=== PATIENT | female | born 1975 | race Caucasian/White ===

== ENCOUNTER 2016-05-23 13:43 | Emergency (ER) | payer OTHER ==
[~2016-05-23] VITALS: Ht 170.2 cm; Wt 99.8 kg
[2016-05-23 13:51] VITALS: BP 127/83
[2016-05-23] MEDS ORDERED: LIDO700A4 TP (14:04)
[2016-05-23] MEDS ORDERED: IBUP600T16 PO (14:04)
[2016-05-23] MEDS ORDERED: CYCL5TAB PO (14:04)
--- NOTE | 2016-05-23 14:14 | ED.ADGEN ---
Past History Past Medical History: No Pertinent History Past Surgical History: Other Alcohol Use: None Drug Use: None Adult General Chief Complaint Chief Complaint back pain HPI HPI Patient is a 40 year old female who presents with right middle back pain. She does not recall an incident for when she injured her back, was gradual in onset , does worsen with movement and twisting. She works as a heart hose coil or, lifting and tugging. She is unsure if she hurt this during her work. She is attempted ibuprofen and Tylenol without relief. No saddle sensory change, no bowel or bladder incontinence Review of Systems Review of Systems Constitutional: Denies fever or chills [] Eyes: Denies change in visual acuity, redness, or eye pain [] HENT: Denies nasal congestion or sore throat [] Respiratory: Denies cough or shortness of breath [] Cardiovascular: No additional information not addressed in HPI [] GI: Denies abdominal pain, nausea, vomiting, bloody stools or diarrhea [] : Denies dysuria or hematuria [] Musculoskeletal: Denies back pain or joint pain [] Integument: Denies rash or skin lesions [] Neurologic: Denies headache, focal weakness or sensory changes [] Endocrine: Denies polyuria or polydipsia [] Allergies Allergies Allergies Coded Allergies Type Severity Reaction Last Updated Verified No Known Drug Allergies 05/23/16 No Physical Exam Physical Exam Constitutional: Well developed, well nourished, no acute distress, non-toxic appearance. [] HENT: Normocephalic, atraumatic, bilateral external ears normal, oropharynx moist, no oral exudates, nose normal. [] Eyes: PERRLA, EOMI, conjunctiva normal, no discharge. [] Neck: Normal range of motion, no tenderness, supple, no stridor. [] Cardiovascular:Heart rate regular with regular rhythm, no murmur [] Lungs & Thorax: Bilateral breath sounds clear to auscultation , no wheeze or crackles Abdomen: soft, no tenderness,nondistended Skin: Warm, dry, no erythema, no rash. [] Back: No midline tenderness, ttp along R lateral back without deformity or erythema, no fluctance or increased warmth. Extremities: No tenderness, no cyanosis, no clubbing, ROM intact, no edema. [] Neurologic: Alert and oriented X 3, normal motor function, normal sensory function, no focal deficits noted. [] Psychologic: Affect normal, judgement normal, mood normal. [] Current Patient Data Vital Signs Vital Signs Date Time Temp Pulse Resp B/P Pulse Ox O2 Delivery O2 Flow Rate FiO2 05/23/16 13:51 98.1 74 18 99 Room Air EKG EKG [] Radiology/Procedures Radiology/Procedures [] Course & Med Decision Making Course & Med Decision Making Pertinent Labs and Imaging studies reviewed. (See chart for details) appears to be muscle strain, likely related to her job. Continue ibuprofen, flexeril and lidoderm patches ordered. Return precautions given. Pt given referral sheet for pcp Final Impression Final Impression acute musculoskeletal back pain[] Problems: Dragon Disclaimer Dragon Disclaimer This electronic medical record was generated, in whole or in part, using a voice recognition dictation system. FRANCES ALSTON MD May 23, 2016 14:14
== END 2016-05-23 14:07 | disposition home or self-care (01) ==
LOC: ER 13:43
DX: M54.89 Other dorsalgia (principal)
CPT/HCPCS: 99283

== ENCOUNTER 2018-01-11 07:02 | Emergency (ER) | payer SELFPAY ==
[~2018-01-11 07:02] MED LIST: CYCL5TAB PO; IBUP600T16 PO; LIDO700A4 TP
[2018-01-11] MEDS ORDERED: HYDROcodone/APAP 5/325MG 1 TAB TABLET ONE (07:21)
--- NOTE | 2018-01-11 07:22 | PHYS DOC ---
Past History Past Medical History: No Pertinent History Past Surgical History: No Surgical History Additional Smoking Information: 1 pack a day Alcohol Use: None Drug Use: None Adult General Chief Complaint Chief Complaint: cough and fever HPI HPI Patient is a 42 year old female who presents with complaining of cough and congestion and fever. Patient states she has had cough and nasal congestion and shortness of breath for 4 week and since yesterday developed fever as high as 103 with generalized weakness and myalgia. Patient complaining of nausea sore throat without vomiting, diarrhea, urinary symptoms, sick contact. Review of Systems Review of Systems Constitutional: Reports fever and chills Eyes: Denies change in visual acuity, redness, or eye pain [] HENT: Reports nasal congestion and sore throat Respiratory: Reports cough and shortness of breath Cardiovascular: No additional information not addressed in HPI [] GI: Denies abdominal pain, vomiting, bloody stools or diarrhea [] : Denies dysuria or hematuria [] Musculoskeletal: Denies back pain or joint pain [] Integument: Denies rash or skin lesions [] Neurologic: Denies headache, focal weakness or sensory changes [] Endocrine: Denies polyuria or polydipsia [] All other systems were reviewed and found to be within normal limits, except as documented in this note. Current Medications Current Medications Current Medications Medications (Trade) Dose Ordered Sig/[facility] Start Time Stop Time Status Last Admin Dose Admin Acetaminophen/ Hydrocodone Bitart (Lortab 5/325) 1 tab 1X ONCE 01/11/18 07:45 01/11/18 07:46 Ibuprofen (Motrin) 800 mg 1X ONCE 01/11/18 07:45 01/11/18 07:46 Allergies Allergies Allergies Coded Allergies Type Severity Reaction Last Updated Verified No Known Drug Allergies 05/23/16 No Physical Exam Physical Exam Constitutional: Well developed, well nourished, moderate distress, non-toxic appearance. [] HENT: Normocephalic, atraumatic, bilateral external ears normal, oropharynx moist, pharyngeal erythema without enlarged tonsils, no oral exudates, nose normal. [] Eyes: PERRLA, EOMI, conjunctiva normal, no discharge. [] Neck: Normal range of motion, no tenderness, supple, no stridor. [] Cardiovascular:Heart rate regular rhythm, no murmur [] Lungs & Thorax: Bilateral breath sounds clear to auscultation [] Abdomen: Bowel sounds normal, soft, no tenderness, no masses, no pulsatile masses. [] Skin: Warm, dry, no erythema, no rash. [] Back: No tenderness, no CVA tenderness. [] Extremities: No tenderness, no cyanosis, no clubbing, ROM intact, no edema. [] Neurologic: Alert and oriented X 3, normal motor function, normal sensory function, no focal deficits noted. [] Psychologic: Affect normal, judgement normal, mood normal. [] Current Patient Data Vital Signs Vital Signs Date Time Temp Pulse Resp B/P (MAP) Pulse Ox O2 Delivery O2 Flow Rate FiO2 01/11/18 07:07 101.7 109 18 97 Room Air EKG EKG [] Radiology/Procedures Radiology/Procedures [] Course & Med Decision Making Course & Med Decision Making Pertinent Labs reviewed. (See chart for details) Evaluation of patient in ER showed 42-year-old female patient with history of smoking and upper respiratory infection symptoms for 4 weeks and fever since last night. Patient had negative flu test and felt better after treatment in ER with ibuprofen and [place]. Plan discharge patient home to diagnose of acute bronchitis and prescription of antibiotic and cough medication. Patient instructed to quit smoking. Dragon Disclaimer Dragon Disclaimer This electronic medical record was generated, in whole or in part, using a voice recognition dictation system. Departure Departure: Impression: Primary Impression: Acute bronchitis Additional Impressions: Fever Tobacco abuse Tobacco abuse counseling Disposition: HOME, SELF-CARE (at 0832) Condition: IMPROVED Referrals: NAMEVIRIDIANA (PCP) Patient Instructions: Acute Bronchitis, Fever, Adult, Smoking Cessation, Tips For Success Additional Instructions: Drink plenty of liquids Follow-up with your primary care physician in 3-5 days Return to ER if not getting better Scripts Ibuprofen (IBUPROFEN) 800 Mg Tablet 1 TAB PO TID for pain, #30 TAB Prov: DAMEON LARIOS MD 01/11/18 Amoxicillin (AMOXICILLIN) 500 Mg Capsule 1 CAP PO Q8HRS for infection, #30 CAP Prov: DAMEON LARIOS MD 01/11/18 Benzonatate (TESSALON PERLE) 100 Mg Capsule 1 CAP PO TID for cough, #21 CAP Prov: DAMEON LARIOS MD 01/11/18 Problem Qualifiers DAMEON LARIOS MD Jan 11, 2018 07:22
[2018-01-11] MEDS ORDERED: HYDROcodone/APAP 5/325MG 1 TAB TABLET PO ONE (07:45)
[2018-01-11] MEDS ORDERED: IBUPROFEN 400 MG TABLET. PO ONE (07:45)
[2018-01-11 08:07] LABS: INFLUENZA A PATIENT NEGATIVE (NEGATIVE); INFLUENZA B PATIENT NEGATIVE (NEGATIVE)
[2018-01-11] MEDS ORDERED: AMOX500C PO (08:36)
[2018-01-11] MEDS ORDERED: BENZ100C PO (08:36)
[2018-01-11] MEDS ORDERED: IBUP800T19 PO (08:36)
[2018-01-11 08:42] VITALS: BP 121/77
== END 2018-01-11 08:46 | disposition home or self-care (01) ==
LOC: ER 07:02
DX: J20.9 Acute bronchitis, unspecified (principal); F17.200 Nicotine dependence, unspecified, uncomplicated; R53.1 Weakness; Z71.6 Tobacco abuse counseling
CPT/HCPCS: 81025; 87804; 99283

== ENCOUNTER 2018-05-15 13:28 | Emergency (ER) | payer MEDICAID ==
[~2018-05-15] VITALS: Ht 170.2 cm; Wt 99.8 kg
[~2018-05-15 13:28] MED LIST changes: +AMOX500C PO; +BENZ100C PO; +IBUP800T19 PO
--- NOTE | 2018-05-15 14:10 | PHYS DOC ---
Past History Past Medical History: No Pertinent History Past Surgical History: No Surgical History Alcohol Use: None Drug Use: None Adult General Chief Complaint Chief Complaint: OTHER COMPLAINTS HPI HPI 42-year-old female presents with vaginal bleeding. The patient is 9 weeks and this morning she started having bright red vaginal bleeding and lower abdominal cramping. She is still having some bleeding, but it has slowed. She continues to have cramping. She has had one previous miscarriage in 1995. She has not had an ultrasound yet. She has not seen OB. Review of Systems Review of Systems Constitutional: Denies fever or chills [] Eyes: Denies change in visual acuity, redness, or eye pain [] HENT: Denies nasal congestion or sore throat [] Respiratory: Denies cough or shortness of breath [] Cardiovascular: No additional information not addressed in HPI [] GI: Abdominal cramping. Denies nausea, vomiting, bloody stools or diarrhea [] : Vaginal bleeding[] Musculoskeletal: Denies back pain or joint pain [] Integument: Denies rash or skin lesions [] Neurologic: Denies headache, focal weakness or sensory changes [] Endocrine: Denies polyuria or polydipsia [] All other systems were reviewed and found to be within normal limits, except as documented in this note. Allergies Allergies Allergies Coded Allergies Type Severity Reaction Last Updated Verified No Known Drug Allergies 05/23/16 No Physical Exam Physical Exam Constitutional: Well developed, well nourished, no acute distress, non-toxic appearance. [] HENT: Normocephalic, atraumatic, bilateral external ears normal, oropharynx moist, no oral exudates, nose normal. [] Eyes: PERRLA, EOMI, conjunctiva normal, no discharge. [] Neck: Normal range of motion, no tenderness, supple, no stridor. [] Cardiovascular:Heart rate regular rhythm, no murmur [] Lungs & Thorax: Bilateral breath sounds clear to auscultation [] Abdomen: Bowel sounds normal, soft, no tenderness, no masses, no pulsatile masses. [] Skin: Warm, dry, no erythema, no rash. [] Back: No tenderness, no CVA tenderness. [] Extremities: No tenderness, no cyanosis, no clubbing, ROM intact, no edema. [] Neurologic: Alert and oriented X 3, normal motor function, normal sensory function, no focal deficits noted. [] Psychologic: Affect normal, judgement normal, mood sad. [] EKG EKG [] Radiology/Procedures Radiology/Procedures [] Impressions: Transabdominal and transvaginal sonography of the pelvis-OB ultrasound study first trimester exam Clinical indications: Bleeding and cramping. COMPARISON: None available. Abdominal sonography: The uterus is anteverted in position. No intrauterine gestational sac is seen. Therefore transvaginal sonography will be performed. No adnexal mass is seen. No free fluid is evident. Right ovarian cyst is evident. Left ovary is not visualized. Transvaginal sonography: The endometrial canal is thickened consistent with state. No intrauterine fetus or heartbeat is seen. There is a question of a very early gestational sac within the fundal portion of the endometrial canal with average measurement of 14 mm. There is an anterior fibroid measuring 3.3 cm in size. Within the right ovary, a cyst is seen measuring almost 6 cm in size. Color Doppler flow it is not visualized within the ovarian parenchyma around the right ovarian cyst. Right ovarian torsion cannot be excluded. The left ovary is not visualized. No free fluid is evident. IMPRESSION: No definite intrauterine is seen. A question of a early gestational sac measuring 14 mm in size. Therefore, this study is indeterminate. Recommend correlation with serial quantitative beta-hCG studies. An ectopic has not been excluded. A 6 cm right ovarian cyst. No color Doppler flow is seen within the ovarian parenchyma around the cyst. Right ovarian torsion cannot be excluded. Left ovary is not visualized. Electronically signed by: Sheri Larson MD (05/15/2018 4:37 PM) [facility] [place] DICTATED AND SIGNED BY: SHERI LARSON MD DATE: 05/15/18 [id number] CC: KARIN HAILE DO; NAME,VIRIDIANA ALONSO ~ Course & Med Decision Making Course & Med Decision Making Pertinent Labs and Imaging studies reviewed. (See chart for details) The patient's blood type is A+. Rogaine was not indicated. Her labs are unremarkable. Ultrasound is pending. HCG is 1430. The ultrasound does not show a definite intrauterine . I recommended serial hCGs as well as OB follow-up this week. The patient is stable for discharge at this time. [] Dragon Disclaimer Dragon Disclaimer This electronic medical record was generated, in whole or in part, using a voice recognition dictation system. Departure Departure: Impression: Primary Impression: Vaginal bleeding during Disposition: HOME, SELF-CARE Condition: STABLE Referrals: CLARKE,VIRIDIANA ALONSO (PCP) Patient Instructions: Vaginal Bleeding During , First Trimester KARIN HAILE DO May 15, 2018 14:10
[2018-05-15 14:11] LABS: BASO # 0.1 x10^3/uL (0.0-0.2); BASO % 1 % (0-3); EOS # 0.1 x10^3/uL (0.0-0.7); EOS % 1 % (0-3); HEMOGLOBIN 14.4 g/dL (12.0-15.5); LYMPH # 2.1 x10^3/uL (1.0-4.8); LYMPH % 19 % (24-48); MEAN CORPUSCULAR HEMOGLOBIN 33 pg (25-35); MEAN CORPUSCULAR HGB CONC 35 g/dL (31-37); MEAN CORPUSCULAR VOLUME 94 fL (79-100); MONO # 0.7 x10^3/uL (0.0-1.1); MONO % 7 % (0-9); NEUT # 7.8 x10^3uL (1.8-7.7); NEUT % 73 % (31-73); PLATELET COUNT 254 x10^3/uL (140-400); RED BLOOD COUNT 4.36 x10^6/uL (3.50-5.40); RED CELL DISTRIBUTION WIDTH 13.3 % (11.5-14.5); WHITE BLOOD COUNT 10.7 x10^3/uL (4.0-11.0)
[2018-05-15 14:17] LABS: ALBUMIN 3.4 g/dL (3.4-5.0); ALBUMIN/GLOBULIN RATIO 1.1 (1.0-1.7); CALCIUM 8.7 mg/dL (8.5-10.1); CREATININE 0.8 mg/dL (0.6-1.0); GFR 79.4; POTASSIUM 3.8 mmol/L (3.5-5.1); TOTAL BILIRUBIN 0.2 mg/dL (0.2-1.0); TOTAL PROTEIN 6.4 g/dL (6.4-8.2)
[2018-05-15 14:30] LABS: BILIRUBIN,URINE NEG (NEG); CLARITY,URINE HAZY; COLOR,URINE YELLOW; GLUCOSE,URINE NEG (NEG); NITRITE,URINE NEG (NEG); UROBILINOGEN,URINE 0.2 mg/dL (0.2 mg/dL)
[2018-05-15 14:31] LABS: BACTERIA,URINE 0 /HPF (0-FEW); SQUAMOUS EPITHELIAL CELL,UR FEW /LPF; WBC,URINE OCC /HPF (0-4)
--- NOTE | 2018-05-15 16:39 | RAD ---
Transabdominal and transvaginal sonography of the pelvis-OB ultrasound study first trimester exam Clinical indications: Bleeding and cramping. COMPARISON: None available. Abdominal sonography: The uterus is anteverted in position. No intrauterine gestational sac is seen. Therefore transvaginal sonography will be performed. No adnexal mass is seen. No free fluid is evident. Right ovarian cyst is evident. Left ovary is not visualized. Transvaginal sonography: The endometrial canal is thickened consistent with state. No intrauterine fetus or heartbeat is seen. There is a question of a very early gestational sac within the fundal portion of the endometrial canal with average measurement of 14 mm. There is an anterior fibroid measuring 3.3 cm in size. Within the right ovary, a cyst is seen measuring almost 6 cm in size. Color Doppler flow it is not visualized within the ovarian parenchyma around the right ovarian cyst. Right ovarian torsion cannot be excluded. The left ovary is not visualized. No free fluid is evident. IMPRESSION: No definite intrauterine is seen. A question of a early gestational sac measuring 14 mm in size. Therefore, this study is indeterminate. Recommend correlation with serial quantitative beta-hCG studies. An ectopic has not been excluded. A 6 cm right ovarian cyst. No color Doppler flow is seen within the ovarian parenchyma around the cyst. Right ovarian torsion cannot be excluded. Left ovary is not visualized. Electronically signed by: Mikel Larson MD (05/15/2018 4:37 PM) [facility] [place]
[2018-05-15 16:51] VITALS: BP 121/79
[2018-05-16] MEDS ORDERED: MELO7.5T29 PO (16:18)
[2018-05-16] MEDS ORDERED: HYDR-3165 PO (16:18)
== END 2018-05-15 17:00 | disposition home or self-care (01) ==
LOC: ER 13:28
DX: O46.91 Antepartum hemorrhage, unspecified, first trimester (principal); O34.81 Maternal care for other abnormalities of pelvic organs, first trimester; N83.201 Unspecified ovarian cyst, right side; Z3A.09 9 weeks gestation of pregnancy
CPT/HCPCS: 36415; 76801; 80053; 81001; 84702; 85025; 86900; 86901; 99284-25

== ENCOUNTER 2018-05-15 22:49 | Emergency (ER) | payer MEDICAID, OTHER ==
[~2018-05-15] VITALS: Ht 170.2 cm; Wt 100.0 kg
--- NOTE | 2018-05-15 23:18 | PHYS DOC ---
Past History Past Medical History: No Pertinent History Past Surgical History: No Surgical History Alcohol Use: None Drug Use: None Adult General Chief Complaint Chief Complaint: VAGINAL BLEEDING HPI HPI Patient is a 42-year-old female, who presents with report of increasing vaginal bleeding. Patient was seen here earlier today by Dr. Juan and diagnosed with vaginal bleeding during . Patient reports that she thought that she was around 9 weeks but ultrasound and quantitative hCG did not support this. Patient states that earlier in the day she was just spotting but then she started passing a lot more blood along with blood clots. She also complains of a lot of lower abdominal cramping. She denies any nausea or vomiting. Patient has an appointment to see her OB on Thursday. Review of Systems Review of Systems Constitutional: Denies fever or chills [] Respiratory: Denies cough or shortness of breath [] Cardiovascular: No additional information not addressed in HPI [] GI: Complains of lower abdominal cramping without vomiting or diarrhea [] : Positive vaginal bleeding[] All other systems were reviewed and found to be within normal limits, except as documented in this note. Current Medications Current Medications Current Medications Medications (Trade) Dose Ordered Sig/[facility] Start Time Stop Time Status Last Admin Dose Admin Nalbuphine HCl (Nubain) 10 mg 1X ONCE 05/15/18 23:15 05/15/18 23:16 UNV Allergies Allergies Allergies Coded Allergies Type Severity Reaction Last Updated Verified No Known Drug Allergies 05/23/16 No Physical Exam Physical Exam Constitutional: Well developed, well nourished, no acute distress, non-toxic appearance. [] Eyes: PERRLA, EOMI, conjunctiva normal, no discharge. [] Neck: Normal range of motion, no tenderness, supple, no stridor. [] Cardiovascular: Regular rate and rhythm[] Lungs & Thorax: Bilateral breath sounds clear to auscultation [] Abdomen: Bowel sounds normal, soft. [] Skin: Warm, dry, no erythema, no rash. [] Neurologic: Alert and oriented X 3, no focal deficits noted. [] EKG EKG [] Radiology/Procedures Radiology/Procedures [] Course & Med Decision Making Course & Med Decision Making Pertinent Labs and Imaging studies reviewed. (See chart for details) [] Dragon Disclaimer Dragon Disclaimer This electronic medical record was generated, in whole or in part, using a voice recognition dictation system. Departure Departure: Impression: Primary Impression: Vaginal bleeding during Disposition: 01 HOME, SELF-CARE Condition: STABLE Referrals: NAME,VIRIDIANA ALONSO (PCP) Patient Instructions: Vaginal Bleeding During , [id number] REBECCA RIOS Jr. DO May 15, 2018 23:18
[2018-05-15] MEDS ORDERED: NALBUPHINE 10 MG/ML AMPUL. IM ONE (23:30)
[2018-05-16 01:10] LABS: BASO # 0.1 x10^3/uL (0.0-0.2); BASO % 1 % (0-3); EOS # 0.2 x10^3/uL (0.0-0.7); EOS % 2 % (0-3); HEMATOCRIT 40.7 % (36.0-47.0); LYMPH # 2.8 x10^3/uL (1.0-4.8); LYMPH % 28 % (24-48); MEAN CORPUSCULAR HEMOGLOBIN 33 pg (25-35); MEAN CORPUSCULAR HGB CONC 35 g/dL (31-37); MEAN CORPUSCULAR VOLUME 94 fL (79-100); MONO # 0.7 x10^3/uL (0.0-1.1); MONO % 7 % (0-9); NEUT # 6.3 x10^3uL (1.8-7.7); NEUT % 62 % (31-73); PLATELET COUNT 250 x10^3/uL (140-400); RED BLOOD COUNT 4.32 x10^6/uL (3.50-5.40); RED CELL DISTRIBUTION WIDTH 13.2 % (11.5-14.5); WHITE BLOOD COUNT 10.1 x10^3/uL (4.0-11.0)
[2018-05-16 01:15] VITALS: BP 128/78
[2018-05-16] MEDS ORDERED: MELO7.5T29 PO (16:18)
[2018-05-16] MEDS ORDERED: HYDR-3165 PO (16:18)
== END 2018-05-16 01:48 | disposition home or self-care (01) ==
LOC: ER 22:49
DX: O46.91 Antepartum hemorrhage, unspecified, first trimester (principal); R10.30 Lower abdominal pain, unspecified; Z3A.09 9 weeks gestation of pregnancy
CPT/HCPCS: 36415; 85025; 96372; 99283; J2300

== ENCOUNTER 2018-05-16 14:04 | Emergency (ER) | payer OTHER ==
[~2018-05-16] VITALS: Ht 170.2 cm; Wt 100.0 kg
[2018-05-16 14:04] VITALS: BP 135/83
--- NOTE | 2018-05-16 14:45 | PHYS DOC ---
Past History Past Medical History: No Pertinent History Past Surgical History: No Surgical History Alcohol Use: None Drug Use: None Adult General Chief Complaint Chief Complaint: VAGINAL BLEEDING HPI HPI Patient is a 42-year-old female presents with worsening pelvic pain and vaginal bleeding. She was seen 2 times yesterday for this. Had a quantitative and an ultrasound performed. She believed that she was 9 weeks but these tests indicate an earlier versus a potential miscarriage. She has had no outpatient pain medicine. She did receive some Nubain while in the emergency department last night. She is 7, para 5. No previous pelvic surgeries. No back or flank pain. She is noting some dysuria at the onset of urination. She reports that the bleeding has improved since yesterday, however she is continuing to pass clots.[] Review of Systems Review of Systems Constitutional: Denies fever or chills [] Eyes: Denies change in visual acuity, redness, or eye pain [] HENT: Denies nasal congestion or sore throat [] Respiratory: Denies cough or shortness of breath [] Cardiovascular: No chest pain or palpitations[] GI: Denies abdominal pain, nausea, vomiting, bloody stools or diarrhea [] : See history of present illness[] Musculoskeletal: Denies back pain or joint pain [] Integument: Denies rash or skin lesions [] Neurologic: Denies headache, focal weakness or sensory changes [] Endocrine: Denies polyuria or polydipsia [] All other systems were reviewed and found to be within normal limits, except as documented in this note. Allergies Allergies Allergies Coded Allergies Type Severity Reaction Last Updated Verified No Known Drug Allergies 05/16/18 No Physical Exam Physical Exam Constitutional: Well developed, well nourished, tearful, non-toxic appearance. [ ] HENT: Normocephalic, atraumatic, bilateral external ears normal, oropharynx moist, no oral exudates, nose normal. [] Eyes: PERRLA, EOMI, conjunctiva normal, no discharge. [] Neck: Normal range of motion, no tenderness, supple, no stridor. [] Cardiovascular:Heart rate regular rhythm, no murmur [] Lungs & Thorax: Bilateral breath sounds clear to auscultation [] Abdomen: Bowel sounds normal, soft, no tenderness, no masses, no pulsatile masses. Pelvic exam performed with engineering assistant: External genitalia, Croswell's, Bartholin's glandsnormal, V/V-scant blood in the vault. cervix-no CMT, no gross hemorrhage [] Skin: Warm, dry, no erythema, no rash. No petechiae, no ulcers [] Back: No tenderness, no CVA tenderness. [] Extremities: No tenderness, no cyanosis, no clubbing, ROM intact, no edema. [] Neurologic: Alert and oriented X 3, normal motor function, normal sensory function, no focal deficits noted. [] Psychologic: Affect tearful, judgement normall. [] Current Patient Data Vital Signs Vital Signs Date Time Temp Pulse Resp B/P (MAP) Pulse Ox O2 Delivery O2 Flow Rate FiO2 05/16/18 14:04 97.7 80 16 97 Room Air EKG EKG [] Radiology/Procedures Radiology/Procedures Ultrasound shows no gestational sac, no evidence of an ectopic .[] Course & Med Decision Making Course & Med Decision Making Pertinent Labs and Imaging studies reviewed. (See chart for details) Medical decision making: Given the lack of a sac in the uterus given that there was one yesterday along with the decreasing quantitative test, believe the patient is completing a miscarriage. There is no evidence of an ectopic. Patient is a positive based on blood typing performed yesterday so no evidence of need for Rh immunoglobulin. ED course: Patient arrived, was placed in bed, and tolerated exam well. Patient was transported to and from [facility], [place] with any complications. Pelvic exam was performed with engineering assistant. After return of lab and imaging studies, these were discussed with patient and her who voiced understanding. All questions were answered. Patient was discharged in improved condition.[] Dragon Disclaimer Dragon Disclaimer This electronic medical record was generated, in whole or in part, using a voice recognition dictation system. Departure Departure: Impression: Primary Impression: Miscarriage Disposition: HOME, SELF-CARE Condition: IMPROVED Referrals: NAMEVIRIDIANA (PCP) Follow-up in 2 days Patient Instructions: Miscarriage Additional Instructions: Follow-up with your [facility] HE[facility] MANAGER as scheduled. Your quantitative test has decreased from 1430 down to 310 between yesterday and today. This level needs to be followed all the way to zero. Return to the ER if worsening pain, bleeding , or any other concerns. Scripts Hydrocodone Bit/Acetaminophen (NORCO 5-325 TABLET) 1 Each Tablet 1-2 TAB PO Q4-6HRS for severe pain, #20 TAB Prov: DOMENICO COVINGTON DO 05/16/18 Meloxicam (MELOXICAM) 7.5 Mg Tablet 7.5 MG PO DAILY for PAIN, #20 TAB Prov: DOMENICO COVINGTON DO 05/16/18 DOMENICO COVINGTON DO May 16, 2018 14:45
[2018-05-16] MEDS ORDERED: ACETAMINOPHEN/CODEINE 300/30MG TABLET PO ONE (15:10)
[2018-05-16 16:03] LABS: BILIRUBIN,URINE NEG (NEG); CLARITY,URINE CLEAR; COLOR,URINE YELLOW; GLUCOSE,URINE NEG (NEG)
[2018-05-16 16:04] LABS: BACTERIA,URINE 0 /HPF (0-FEW); NITRITE,URINE NEG (NEG); SQUAMOUS EPITHELIAL CELL,UR OCC /LPF; UROBILINOGEN,URINE 0.2 mg/dL (0.2 mg/dL)
[2018-05-16] MEDS ORDERED: MELO7.5T29 PO (16:18)
[2018-05-16] MEDS ORDERED: HYDR-3165 PO (16:18)
--- NOTE | 2018-05-16 16:19 | RAD ---
Examination: Obstetric ultrasound less than 14 weeks HISTORY: History of increasing pain, bleeding COMPARISON: 05/15/2018 FINDINGS: The uterus measures 12.5 x 6.4 x 7.2 cm. There is heterogeneous echogenicity identified within the anterior wall of the uterus measuring 3.3 cm likely a fibroid. The right ovary measures 6.2 x 5.8 x 6.1 cm. There is a 5.7 cm cyst identified in the right ovary. Left ovary could not be visualized due to bowel gas A intrauterine gestational sac is not evident. IMPRESSION: 1. Obvious intrauterine gestational sac is not evident. Differential includes failed first trimester , very early or ectopic . An ectopic gestation sac is not evident. Recommend correlation with serial quantitative beta-hCG levels and close interval follow-up ultrasound examination. 2. 5.7 cm cystic structure identified in the right ovary likely a cyst. 3. 3.3 cm fibroid identified in the anterior wall of the uterus, unchanged. Electronically signed by: Tanner Fonseca MD (05/16/2018 4:16 PM) [facility]
== END 2018-05-16 16:30 | disposition home or self-care (01) ==
LOC: ER 14:04
DX: O03.9 Complete or unspecified spontaneous abortion without complication (principal)
CPT/HCPCS: 36415; 76817; 81001; 84702; 99284-25

== ENCOUNTER 2019-02-17 18:15 | Emergency (ER) | payer MEDICAID, OTHER ==
[~2019-02-17] VITALS: Ht 170.2 cm; Wt 116.1 kg
[~2019-02-17 18:15] MED LIST changes: +HYDR-3165 PO; +MELO7.5T29 PO
--- NOTE | 2019-02-17 18:25 | PHYS DOC ---
Past History Past Medical History: No Pertinent History Past Surgical History: No Surgical History Alcohol Use: None Drug Use: None Adult General Chief Complaint Chief Complaint: VAGINAL BLEEDING.." I got constant vaginal bleeding.. it like a peroid.. but it will not stop..." [facility] HPI Patient is a 43 year old female who presents with vaginal bleeding. She states she's been going through several Tampons a day. Patient denies current . No history of STDs. 3 lifetime sex partners. No history of trauma or used overdose. Patient's had 7 pregnancies and 2 miscarriages. Patient denies any history coagulopathy with him or family members. Patient denies any excessive sig use. Patient patient denies any history of abnormal Pap exams. No history immunosuppression. Review of Systems Review of Systems Constitutional: Denies fever or chills [] Eyes: Denies change in visual acuity, redness, or eye pain [] HENT: Denies nasal congestion or sore throat [] Respiratory: Denies cough or shortness of breath [] Cardiovascular: No additional information not addressed in HPI [] GI: Denies abdominal pain, nausea, vomiting, bloody stools or diarrhea [] : Denies dysuria or hematuria . The []patient has complaints of dysfunctional uterine bleeding Musculoskeletal: Denies back pain or joint pain [] Integument: Denies rash or skin lesions [] Neurologic: Denies headache, focal weakness or sensory changes [] Endocrine: Denies polyuria or polydipsia [] All other systems were reviewed and found to be within normal limits, except as documented in this note. Family History Family History Noncontributory Current Medications Current Medications See nursing for home meds Allergies Allergies Allergies Coded Allergies Type Severity Reaction Last Updated Verified No Known Drug Allergies 05/16/18 No Physical Exam Physical Exam Constitutional: Moderate acute distress, non-toxic appearance. [] HENT: Normocephalic, atraumatic, bilateral external ears normal, oropharynx moist, no oral exudates, nose normal. [] Eyes: PERRLA, EOMI, conjunctiva normal, no discharge. [] Neck: Normal range of motion, no tenderness, supple, no stridor. [] Cardiovascular:Heart rate regular rhythm, no murmur [] Lungs & Thorax: Bilateral breath sounds clear to auscultation [] Abdomen: Bowel sounds normal, soft, mild lower pelvic tenderness, no masses, no pulsatile masses. [] Is spotting from os. Rectal exam nontender. Rebound to lower pelvic area Skin: Warm, dry, no erythema, no rash. [] Back: No tenderness, no CVA tenderness. [] Extremities: No tenderness, no cyanosis, no clubbing, ROM intact, no edema. [] Neurologic: Alert and oriented X 3, normal motor function, normal sensory function, no focal deficits noted. [] Psychologic: Affect anxious,, judgement normal, mood normal. [] EKG EKG [] Radiology/Procedures Radiology/Procedures [] Course & Med Decision Making Course & Med Decision Making Pertinent Labs and Imaging studies reviewed. (See chart for details) Pt. to follow up pending cultures. Patient follow-up [employer]. Patient may need vaginal ultrasound. May need endometrial biopsy. Patient continue pad counts. Return if any concerns. Impression: 1. Dysfunctional uterine bleeding 2. Mild leukocytosis of 11.4 [] Dragon Disclaimer Dragon Disclaimer This electronic medical record was generated, in whole or in part, using a voice recognition dictation system. Departure Departure: Disposition: 01 HOME/RESIDENCE PRIOR TO ADM Condition: STABLE Referrals: NAME,VIRIDIANA ALONSO (PCP) Dhaval Disclaimer This chart was dictated in whole or in part using Voice Recognition software in a busy, high-work load, and often noisy Emergency Department environment. It may contain unintended and wholly unrecognized errors or omissions. GEORGE DEE MD Feb 17, 2019 18:25
[2019-02-17] MEDS ORDERED: IV RINGERS SOLUTION,LACTATED 1,000 ML IV SCH (18:26)
[2019-02-17 19:18] LABS: BASO # 0.1 x10^3/uL (0.0-0.2); BASO % 1 % (0-3); EOS # 0.1 x10^3/uL (0.0-0.7); EOS % 1 % (0-3); HEMATOCRIT 46.2 % (36.0-47.0); HEMOGLOBIN 15.9 g/dL (12.0-15.5); LYMPH # 2.7 x10^3/uL (1.0-4.8); LYMPH % 24 % (24-48); MEAN CORPUSCULAR HEMOGLOBIN 32 pg (25-35); MEAN CORPUSCULAR HGB CONC 34 g/dL (31-37); MEAN CORPUSCULAR VOLUME 93 fL (79-100); MONO # 0.9 x10^3/uL (0.0-1.1); MONO % 8 % (0-9); NEUT # 7.5 x10^3uL (1.8-7.7); NEUT % 66 % (31-73); PLATELET COUNT 281 x10^3/uL (140-400); RED BLOOD COUNT 4.96 x10^6/uL (3.50-5.40); RED CELL DISTRIBUTION WIDTH 13.2 % (11.5-14.5); WHITE BLOOD COUNT 11.4 x10^3/uL (4.0-11.0)
[2019-02-17 19:33] LABS: ANION GAP 8 (6-14); BLOOD UREA NITROGEN 7 mg/dL (7-20); CALCIUM 8.5 mg/dL (8.5-10.1); CARBON DIOXIDE 26 mmol/L (21-32); CHLORIDE 105 mmol/L (98-107); CREATININE 0.9 mg/dL (0.6-1.0); GLUCOSE 96 mg/dL (70-99); POTASSIUM 3.6 mmol/L (3.5-5.1); SODIUM 139 mmol/L (136-145)
[2019-02-17 19:45] LABS: ALBUMIN 3.4 g/dL (3.4-5.0); ALK PHOS 61 U/L (46-116); ALT (SGPT) 24 U/L (14-59); AST (SGOT) 16 U/L (15-37); TOTAL BILIRUBIN 0.1 mg/dL (0.2-1.0)
[2019-02-17 19:46] LABS: DIRECT BILIRUBIN < 0.1 mg/dL (0.0-0.2)
[2019-02-17 19:51] LABS: BARBITURATES NEG (NEG); BENZODIAZEPINES NEG (NEG); CANNABINOIDS NEG (NEG); COCAINE NEG (NEG); METHADONE NEG (NEG); OPIATES NEG (NEG); PHENCYCLIDINE NEG (NEG)
[2019-02-17 19:54] LABS: AMPHETAMINE/METHAMPHETAMINE NEG (NEG)
[2019-02-17 20:06] VITALS: BP 135/87
[2019-02-17 20:21] LABS: BILIRUBIN,URINE NEG (NEG); CLARITY,URINE CLEAR; COLOR,URINE YELLOW; GLUCOSE,URINE NEG (NEG); NITRITE,URINE NEG (NEG); UROBILINOGEN,URINE 0.2 mg/dL (0.2 mg/dL)
[2019-02-17 20:22] LABS: BACTERIA,URINE FEW /HPF (0-FEW); SQUAMOUS EPITHELIAL CELL,UR OCC /LPF
[2019-02-21 20:07] LABS: CHLAMYDIA PROBE Negative (Negative)
== END 2019-02-17 21:33 | disposition home or self-care (01) ==
LOC: ER 18:15
DX: N93.8 Other specified abnormal uterine and vaginal bleeding (principal); D72.829 Elevated white blood cell count, unspecified
CPT/HCPCS: 80048; 80076; 80307; 81001; 81025; 85025; 85610; 85730; 87491; 87591; 99285; J7120; Q0111; 36415